=== PATIENT | female | born 1960 | race Caucasian/White ===

== ENCOUNTER 2016-12-21 14:58 | Outpatient (CLI) | payer OTHER ==
--- NOTE | 2016-12-22 09:22 | Ultrasound Report ---
THYROID ULTRASOUND: 12/21/2016 CLINICAL INDICATION: Nodule. TECHNIQUE: Real-time scanning was performed with associate sales representative static images obtained. The right lobe of the thyroid measures 4.8 x 1.6 x 1.3 cm, and the left lobe measures 5.7 x 3.1 x 2.3 cm. The isthmus measures 2 mm. The left lobe is dominated by a predominantly solid, heterogeneous nodule measuring 3.1 x 2.6 x 2.2 cm. It does demonstrate small internal cystic spaces, and associate d vascularity. Tiny subcentimeter solid and cystic nodules are scattered bilaterally. No adenopathy is seen. IMPRESSION: HETEROGENEOUS 3.1 X 2.6 X 2.2 CM NODULE DOMINATING THE LEFT LOBE OF THE THYROID. THIS I S A LOW SUSPICION NODULE BY REY CRITERIA, BUT GIVEN THE SIZE, FNA WOULD BE RECOMMENDED. JOB #: [id number] EXT JOB #:[id number]
== END 2016-12-21 14:59 | disposition home or self-care (01) ==
LOC: DI 14:58
PROVIDERS: ATTEND Physician Assistant
DX: E04.1 Nontoxic single thyroid nodule (principal)
CPT/HCPCS: 76536

== ENCOUNTER 2017-02-14 11:32 | Outpatient (CLI) | payer OTHER ==
--- NOTE | 2017-02-15 11:39 | Mammography Report ---
DIGITAL BILATERAL SCREENING MAMMOGRAPHY: 02/14/2017 COMPARISON: 01/19/2015, 04/17/2013, and 05/13/2008. TECHNIQUE: Bilateral digital CC, exaggerated CC, and MLO projections. FINDINGS: There are scattered fibroglandular densities. A faint nodular density in the subareolar l eft breast is stable. There is no other dominant mass, architectural distortion, skin thickening, odonnell spicious microcalcifications, or interval change. IMPRESSION: NEGATIVE. BIRADS CATEGORY 1. SUGGEST ROUTINE FOLLOWUP IN 12 MONTHS. STANDARD QUALIFYING STATEMENTS 1. This examination was reviewed with the aid of Computer-Aided Detection (CAD). 2. A negative or benign imaging report should not delay biopsy if clinically suspicious findings are present. Consider surgical consultation if warranted. More than 5% of cancers are not identified by i maging. 3. Dense breasts may obscure an underlying neoplasm. JOB #: [id number] EXT JOB #:[id number]
== END 2017-02-14 11:33 | disposition home or self-care (01) ==
LOC: DI.S 11:32
PROVIDERS: ATTEND Physician Assistant
DX: Z12.31 Encounter for screening mammogram for malignant neoplasm of breast (principal)
CPT/HCPCS: 77067

== ENCOUNTER 2020-10-27 08:00 | Outpatient (CLI) | payer BC, OTHER ==
[2020-10-27 14:50] LABS: BILIRUBIN,URINE COLOR INTERFERENCE (NEGATIVE); CLARITY,URINE HAZY (CLEAR)
[2020-10-27 15:07] LABS: BACTERIA,URINE Rare /HPF (None Seen); RBC,URINE TNTC /HPF (0-5); SQUAMOUS EPITHELIAL CELL,UR FEW Squamous (<= Few); WBC,URINE >25 /HPF (0-5)
[2020-10-27 15:09] LABS: LEUKOCYTE ESTERASE, URINE LARGE (NEGATIVE)
== END 2020-10-27 23:59 | disposition home or self-care (01) ==
LOC: LAB.S 08:00
PROVIDERS: ATTEND Emergency Medicine
DX: R30.0 Dysuria (principal)
CPT/HCPCS: 81001; 87077; 87086; 87181